=== PATIENT | male | born 1960 ===

== ENCOUNTER 2022-01-13 07:46 | Outpatient (CLI) | payer OTHER | END 2022-01-13 15:09 | disposition home or self-care (01) | LOC: LAB 07:46 | PROVIDERS: ATTEND Orthopaedic Surgery | DX: Z01.812 Encounter for preprocedural laboratory examination (principal); Z20.822 Contact with and (suspected) exposure to COVID-19 ==

== ENCOUNTER 2022-01-14 09:51 | Outpatient (CLI) | payer OTHER ==
[2022-01-14 11:10] LABS: HEMATOCRIT 42.2 % (36.7-47.1); MEAN CORPUSCULAR HEMOGLOBIN 32.1 uug (23.8-33.4); MEAN CORPUSCULAR VOLUME 92.7 fL (73.0-96.2); PLATELET COUNT (AUTO) 232 K/uL (152-348)
[2022-01-14 11:13] LABS: *BILIRUBIN,URIN NEGATIVE (NEGATIVE); *BLOOD, URINE NEGATIVE (NEGATIVE); *CLARITY,URINE CLEAR (CLEAR); *COLOR,URINE YELLOW (YELLOW); *KETONES,URINE NEGATIVE (NEGATIVE); *UROBILINOGEN,URINE 0.2 E.U./dl (NORMAL); LEUKOCYTE ESTERASE ,URINE NEGATIVE (NEGATIVE); NITRITE, URINE NEGATIVE (NEGATIVE); PH,URINE 5.5 (5.0-8.0); UGLUCOSE NEGATIVE (NEGATIVE)
[2022-01-14 11:17] LABS: CREATININE 1.2 mg/dL (0.6-1.3); POTASSIUM 4.1 mmol/L (3.5-5.1)
[2022-01-14 11:23] LABS: BILIRUBIN,TOTAL 0.2 mg/dL (0.2-1.0)
== END 2022-01-14 23:59 | disposition home or self-care (01) ==
LOC: LAB 09:51
PROVIDERS: ATTEND Internal Medicine
DX: Z01.818 Encounter for other preprocedural examination (principal); R00.1 Bradycardia, unspecified; I51.7 Cardiomegaly
CPT/HCPCS: 36415; 71045; 85025; 85730; 93005

== ENCOUNTER 2022-01-15 06:42 | Day surgery (SDC) | payer OTHER ==
[2022-01-15] MEDS ORDERED: ONDANSETRON 4 MG/2 ML VIAL IV ONE (06:43)
[2022-01-15] MEDS ORDERED: EPHEDRINE SULFATE 50 MG/ML AMPUL IM ONE (06:43)
[2022-01-15] MEDS ORDERED: DEXAMETHASONE SOD PHOSPHATE 4 MG INJ IV ONE (06:43)
[2022-01-15] MEDS ORDERED: CEFAZOLIN 1 G VIAL IM ONE (06:43)
[2022-01-15] MEDS ORDERED: PHENYLEPHRINE 10 MG/1 ML VIAL IV ONE (06:43)
[2022-01-15] MEDS ORDERED: LIDOCAINE-MPF 2% 5 ML VIAL IJ ONE (06:43)
[2022-01-15] MEDS ORDERED: BUPIVACAINE/EPI PF 0.5% 10 ML VIAL ONE (07:22)
[2022-01-15] MEDS ORDERED: MIDAZOLAM HCL 2 MG/2 ML VIAL ONE (08:54)
[2022-01-15] MEDS ORDERED: FENTANYL CITRATE 100 MCG/2 ML AMPUL ONE ×2 (08:54→11:01)
[2022-01-15] MEDS ORDERED: PROPOFOL 200 MG/20 ML BOTTLE ONE (08:54)
[2022-01-15] MEDS ORDERED: ROCURONIUM BROMIDE 50 MG/5 ML VIAL ONE (08:55)
[2022-01-15] MEDS ORDERED: KETOROLAC TROMETHAMINE 30 MG INJ ONE (10:53)
[2022-01-15] MEDS ORDERED: LABETALOL HCL 100 MG/20 ML VIAL ONE (10:54)
[2022-01-15] MEDS ORDERED: hydrALAZINE HCL 20 MG/1 ML VIAL ONE (11:24)
== END 2022-01-15 13:45 | disposition home or self-care (01) ==
LOC: DS 06:42
PROVIDERS: ATTEND Orthopaedic Surgery
DX: M75.102 Unspecified rotator cuff tear or rupture of left shoulder, not specified as traumatic (principal); M75.42 Impingement syndrome of left shoulder; I25.10 Atherosclerotic heart disease of native coronary artery without angina pectoris; Z79.899 Other long term (current) drug therapy; Z98.890 Other specified postprocedural states
CPT/HCPCS: 23120; 23130; 23410; 23415; J0360; J0690; J1100; J1885; J2250; J2370; J2405; J3010; J3490 ×5; J7120; A4649; A4663